=== PATIENT | female | born 1955 | race Caucasian/White ===

== ENCOUNTER 2020-12-04 12:54 | Inpatient (IN) ==
[2020-12-04] MEDS ORDERED: 0.9 % Sodium Chloride 1,000 ML IVC SCH (14:30)
[2020-12-04] MEDS ORDERED: Ondansetron 4 MG/2 ML VIAL IVP ONE (14:39)
[2020-12-04] MEDS ORDERED: *HR* HYDROmorphone (PF) 1 MG/ML SYRINGE IVP ONE (14:39)
[2020-12-04 16:37] LABS: Basophils # 0.1 K/mcL (0.0-0.2); Basophils % 0.5 %; Eosinophils % 0.1 %; Hematocrit 44.1 % (35.3-44.9); Hemoglobin 14.1 g/dL (11.5-15.4); Immature Granulocytes % 0.4 % (0-4); Lymphocytes # 1.3 K/mcL (0.6-4.6); Lymphocytes % 11.8 %; Mean Corpuscular Hemoglobin 29.9 pg (28.0-33.3); Mean Corpuscular Volume 93.4 fL (83.0-100.0); Mean Platelet Volume 10.2 fL (9.4-12.4); Monocytes # 0.8 K/mcL (0.0-1.3); Monocytes % 6.6 %; Neutrophils # 9.2 K/mcL (1.6-8.9); Platelet Count 203 K/mcL (140-400); Red Blood Count 4.72 M/mcL (3.82-4.97); Red Cell Distribution Width 13.7 % (11.5-14.5); Segmented Neutrophils % 80.6 %; White Blood Count 11.4 K/mcL (4.3-11.1)
[2020-12-04 16:44] LABS: INR 1.1; Prothrombin Time 12.3 Seconds (9.4-12.1)
[2020-12-04 16:47] LABS: Activated Partial Thrombo Time 28.4 Seconds (26.0-36.0)
[2020-12-04 16:59] LABS: BUN/Creatinine Ratio 26 (6-26); Blood Urea Nitrogen 20 mg/dL (8-23); Calcium 9.5 mg/dL (8.6-10.3); Carbon Dioxide 25 mEq/L (23-29); Chloride 103 mEq/L (98-107); Glucose 122 mg/dL (70-105); Osmolality,Calculated 290 (280-300); Potassium 3.5 mEq/L (3.5-5.1); Sodium 138 mEq/L (136-145); eGFR For African Americans > 60 (> 60); eGFR For Non-African Americans > 60 (> 60)
[2020-12-04] MEDS ORDERED: Ondansetron 4 MG/2 ML VIAL IVP PRN (17:43)
[2020-12-04] MEDS ORDERED: Melatonin 3 MG TABLET PO PRN (17:43)
[2020-12-04] MEDS ORDERED: Naloxone 0.4 MG/ML INJ IVP PRN (17:43)
[2020-12-04] MEDS ORDERED: *HR* OxyCODONE Immed Rel 5 MG TABLET PO PRN ×2 (17:45)
[2020-12-04] MEDS: Ringers Solution, Lactated 1,000 ML IVC SCH (17:52)
[2020-12-05 05:25] LABS: Basophils % 0.4 %; Eosinophils % 0.1 %; Hematocrit 39.1 % (35.3-44.9); Immature Granulocytes % 0.3 % (0-4); Lymphocytes # 2.1 K/mcL (0.6-4.6); Lymphocytes % 25.9 %; Mean Corpuscular HGB Conc 31.7 g/dL (31.6-35.5); Mean Corpuscular Hemoglobin 29.9 pg (28.0-33.3); Mean Corpuscular Volume 94.2 fL (83.0-100.0); Mean Platelet Volume 10.4 fL (9.4-12.4); Monocytes % 12.2 %; Neutrophils # 4.8 K/mcL (1.6-8.9); Platelet Count 178 K/mcL (140-400); Red Blood Count 4.15 M/mcL (3.82-4.97); Red Cell Distribution Width 14.1 % (11.5-14.5); Segmented Neutrophils % 61.1 %; White Blood Count 7.9 K/mcL (4.3-11.1)
[2020-12-05 05:26] LABS: Hemoglobin 12.4 g/dL (11.5-15.4)
[2020-12-05 05:53] LABS: BUN/Creatinine Ratio 24 (6-26); Blood Urea Nitrogen 19 mg/dL (8-23); Calcium 8.8 mg/dL (8.6-10.3); Carbon Dioxide 24 mEq/L (23-29); Chloride 106 mEq/L (98-107); Glucose 129 mg/dL (70-105); Osmolality,Calculated 288 (280-300); Sodium 137 mEq/L (136-145); eGFR For African Americans > 60 (> 60); eGFR For Non-African Americans > 60 (> 60)
[2020-12-05] MEDS: Ringers Solution, Lactated 1,000 ML IVC SCH (07:34)
[2020-12-05] MEDS: Metoprolol XL (24 HR) Succ 25 MG TAB.ER.24H PO SCH (07:34)
[2020-12-05] MEDS ORDERED: *HR* Midazolam HCl 2 MG/2 ML VIAL ONE (09:45)
[2020-12-05] MEDS ORDERED: *HR* Propofol 200 MG/20 ML VIAL IVP ONE (09:45)
[2020-12-05] MEDS ORDERED: *HR* FentaNYL (PF) 100 MCG/2 ML VIAL ONE ×3 (09:45→15:29)
[2020-12-05] MEDS ORDERED: Ondansetron 4 MG/2 ML VIAL ONE (09:47)
[2020-12-05] MEDS ORDERED: 0.9 % Sodium Chloride 1,000 ML IVC SCH (11:00)
[2020-12-05] MEDS ORDERED: Ropivacaine/PF 0.5% 30 ML VIAL ONE (13:06)
[2020-12-05] MEDS ORDERED: ROPIVACAINE/PF/NS 0.25% 1 EACH SYRINGE INTRAART ONE (13:07)
[2020-12-05] MEDS ORDERED: Ondansetron 4 MG/2 ML VIAL IVP PRN ×2 (13:29→18:02)
[2020-12-05] MEDS ORDERED: MOM Conc 10 ML UD.LIQ PO PRN (13:29)
[2020-12-05] MEDS ORDERED: Sennosides 8.6 MG TABLET PO PRN (13:29)
[2020-12-05] MEDS ORDERED: Ringers Solution, Lactated 1,000 ML IVC SCH (13:30)
[2020-12-05] MEDS ORDERED: Lidocaine HCL 4 ML Topical Solution (Laryng-O-Jet Kit Sterile Pak) TP ONE (13:47)
[2020-12-05] MEDS ORDERED: Clindamycin 900 MG/50 ML 900 MG/50 ML IV.SOLN IVPB ONE ×2 (13:50→14:00)
[2020-12-05] MEDS ORDERED: *HR* HYDROMORPHONE 2 MG/ML VIAL ONE (17:53)
[2020-12-05] MEDS ORDERED: *HR* HYDROmorphone PF 0.5 MG/0.5 ML SYRINGE IVP PRN (18:02)
[2020-12-05] MEDS: Clindamycin 900 MG/50 ML 900 MG/50 ML IV.SOLN IVPB SCH (21:43)
[2020-12-06 04:56] LABS: Basophils % 0.1 %; Hematocrit 34.3 % (35.3-44.9); Hemoglobin 11.2 g/dL (11.5-15.4); Immature Granulocytes % 0.5 % (0-4); Lymphocytes # 1.4 K/mcL (0.6-4.6); Lymphocytes % 13.3 %; Mean Corpuscular HGB Conc 32.7 g/dL (31.6-35.5); Mean Corpuscular Hemoglobin 30.3 pg (28.0-33.3); Mean Corpuscular Volume 92.7 fL (83.0-100.0); Mean Platelet Volume 10.7 fL (9.4-12.4); Monocytes # 1.6 K/mcL (0.0-1.3); Monocytes % 15.5 %; Neutrophils # 7.5 K/mcL (1.6-8.9); Platelet Count 172 K/mcL (140-400); Red Cell Distribution Width 14.2 % (11.5-14.5); Segmented Neutrophils % 70.6 %; White Blood Count 10.6 K/mcL (4.3-11.1)
[2020-12-06] MEDS: Clindamycin 900 MG/50 ML 900 MG/50 ML IV.SOLN IVPB SCH (05:37)
[2020-12-06 06:42] LABS: BUN/Creatinine Ratio 20 (6-26); Blood Urea Nitrogen 17 mg/dL (8-23); Calcium 8.8 mg/dL (8.6-10.3); Carbon Dioxide 25 mEq/L (23-29); Chloride 106 mEq/L (98-107); Glucose 121 mg/dL (70-105); Osmolality,Calculated 291 (280-300); Potassium 4.4 mEq/L (3.5-5.1); Sodium 139 mEq/L (136-145); eGFR For African Americans > 60 (> 60); eGFR For Non-African Americans > 60 (> 60)
[2020-12-06 06:50] VITALS: BP 94/61
[2020-12-06] MEDS ORDERED: Anastrozole 1 MG TABLET PO SCH (09:00)
[2020-12-06] MEDS ORDERED: Venlafaxine XR (24 HR) 150 MG CAP.ER.24H PO SCH (09:00)
[2020-12-06] MEDS: Metoprolol XL (24 HR) Succ 25 MG TAB.ER.24H PO SCH (09:33)
== END 2020-12-06 13:31 | disposition home or self-care (01) | DRG 494 ==
LOC: EMEROOARM 12:54 → 3NENU 12:54 → SUATTDRO 17:14 → 3NENU 17:28
PROVIDERS: ADMIT Internal Medicine; ATTEND Orthopaedic Surgery